=== PATIENT | male | born 1950 ===

== ENCOUNTER 2016-12-14 01:03 | Day surgery (SDC) | payer OTHER ==
[2016-12-14] VITALS (11 sets, daily range): BP systolic 122–154; BP diastolic 54–117; PULSE 43–50; RESP 12–20; O2SAT 97–98
[~2016-12-14] VITALS: Ht 170.2 cm; Wt 87.7 kg
[~2016-12-14 01:03] MED LIST: ASPI-973 PO; ATRV10T PO; BACL10TA PO; BUPR-97 PO; BUPR100T8 PO; CHOL10008 PO; LORA10CA PO; METH5TAB3 PO; METO-272 PO; NITR0.4T6 SL; QUET100T69 PO; TERA2CAP4 PO; VARE0.5T PO
[2016-12-14] MEDS ORDERED: 0.9% Sodium Chloride 1,000 ML IV ONE (09:34)
[2016-12-14 12:46] LABS: BASOPHILS % (AUTO) 0.4 % (0-3); EOSINOPHILS % (AUTO) 3.1 % (0-5); MONOCYTES % (AUTO) 3.5 % (4-12); Mean Corpuscular Hemoglobin 30.8 pg (27.0-35.0); Mean Corpuscular Volume 91.8 fL (81-100); Platelet Count 272 bil/L (150-400)
--- NOTE | 2016-12-14 14:18 | NUR ---
MICHEAL: Pt arrived to [facility] at 1215, VSS, no pain, IV X2 started with NS at 100 ml/hr per order. Awaiting procedure at this time. Addendum: 12/14/16 at 1458 by GEO MCMANUS RN Taken to slab miller operator in bed at 1455 per slab miller operator staff. Preop meds administered at around 1445. Family aware that pt taken to procedure for cath. Report given to Lynn Cagle RN in slab miller operator.
[2016-12-14] MEDS ORDERED: Heparin 1,000 Units/500 mL NS Premix IV ONE (14:32)
[2016-12-14] MEDS ORDERED: Nitroglycerin 50,000 mcg/250 mL D5W Premix IV ONE (14:32)
[2016-12-14] MEDS ORDERED: Heparin 1,000 Unit/mL 10 mL Inj ONE (14:32)
[2016-12-14] MEDS ORDERED: Heparin 5,000 Units/500 mL NS Premix IV ONE (14:33)
[2016-12-14] MEDS ORDERED: fentaNYL-PF 50 mCg/mL 2 mL Inj ONE (15:05)
--- NOTE | 2016-12-14 16:25 | DI95 ---
[address] [address] INTERVENTIONAL CARDIAC CATHETERIZATION PATIENT: JENNIFER PRINGLE : 1950 MR#: [id number] ADMIT: 12/14/2016 JOB ID: [id number] DOS:4.21.17 PROCEDURE: Selective right and left coronary angiography, left heart catheterization, percutaneous intervention on the left anterior descending. Abdominal and iliac angiography. INDICATION: 1. Known vascular disease. 2. Known coronary artery disease. 3. Recurrent chest pain. PROCEDURAL DETAILS: The reader is referred to the procedure log for complete details. Briefly, it was done via left femoral approach because of his history of prior complication with the iliac on the right side. Further details are in the procedure log to which the reader and the coders are referred. ANGIOGRAPHIC FINDINGS: 1. Left main: No significant disease. 2. LAD is a moderate caliber vessel in its mid to distal segment. It has evidence of prior stents. There is proximal finesse-stent restenosis and significant in-stent restenoses of about 80% to 90%. The distal vessel is a small caliber vessel. 3. Circumflex is nondominant, free of any critical disease. 4. Right coronary artery is dominant in its mid segment. It has about 30% to 40% lesion. 5. Left heart catheterization revealed an LVEDP of 18-19. There was no gradient upon pullback. Left ventriculogram revealed mild LV dysfunction. objective assessment of LVEF cannot be done because of ventricular tachycardia during the procedure. 6. Mild atheromatous disease of the distal abdominal aorta. INTERVENTIONAL REPORT: We then proceeded ahead with an intervention on the LAD. This was balloon dilated with a 2.0 balloon and then the proximal part of the stent and the proximal area of finesse-stent restenosis was treated with an overlapping stent, 2.5 x 12 mm Xience, delivered at 18 atmospheres. Using the same 2.5 balloon the previously placed stent was also postdilated. Final angiographic results were excellent. Iliac angiography was then performed and note is made of metal clips in the sacral region. There is a stent in the right common iliac artery. Additional angiography reveals that the stent is patent. There is mild disease in the left external iliac artery. Common femoral arteries bilaterally are patent. SFA and profunda are bilaterally patent as well. MTDD
[2016-12-14] MEDS: Sodium Chloride LOK Flush 10 mL Syringe IVFLUSH SCH (16:30)
--- NOTE | 2016-12-14 19:26 | NUR ---
MICHEAL to [facility] Pt arrived at approximately 182 to [facility]. Per report pt on bedrest until 1829. Pt dinner ordered in [facility] being sent up to [facility], verifed by Sup who transported pt. No pain on palp or hematoma to Left groin, pedal pulse strong. Pt Pulse 46. Care continues.
[2016-12-14] MEDS ORDERED: 0.9% Sodium Chloride 250 ML BOLUS IV PRN (19:40)
[2016-12-14] MEDS ORDERED: Sodium Chloride LOK Flush 10 mL Syringe IVFLUSH PRN (19:40)
[2016-12-14] MEDS ORDERED: Atropine 1 mg/10 mL (Code) Syringe IVPUSH PRN (19:40)
[2016-12-14] MEDS ORDERED: 0.9% Sodium Chloride 400 ML (4 HRS) IV ONE (19:40)
[2016-12-15 00:22] VITALS: BP 121/77; PULSE 46; RESP 17; O2SAT 97
[2016-12-15] MEDS: Sodium Chloride LOK Flush 10 mL Syringe IVFLUSH SCH (00:30)
[2016-12-15 04:19] VITALS: BP 119/72; PULSE 47; RESP 15; O2SAT 97
[2016-12-15 05:20] VITALS: PULSE 48
--- NOTE | 2016-12-15 07:56 | NUR ---
Activity/Groin Site Pt was able to get OOB and walk to the bathroom without c/o pain, dizziness, or SOB. Pt's groin site remained soft with no drainage and was pain free during activity and after activity once pt was back into bed. This AM during hand off report groin site was assessed again with the oncoming RN and the groin site remains soft and only tender to the touch when pressed down on with no drainage.
[2016-12-15 08:00] VITALS: PULSE 47
[2016-12-15 08:25] VITALS: BP 126/75; PULSE 52; RESP 16; O2SAT 97
[2016-12-15] MEDS ORDERED: buPROPion XL 300 mg ER24 Tablet PO SCH (08:30)
[2016-12-15] MEDS ORDERED: MeTOProlol XL 25 mg ER24 Tablet PO SCH (08:30)
--- NOTE | 2016-12-15 08:41 | NUR ---
Right groin/go home Pt right groin intact, no drainage, no hematoma. Pt stated he wanted to go home. Notified pt this RN will pass information onto MD. Care continues.
[2016-12-15] MEDS ORDERED: CLOP75TA28 PO (09:40)
--- NOTE | 2016-12-15 09:49 | PCM.DIMED ---
Discharge Instructions Date of Service Dec 15, 2016 Dates of Hospitalization 12/14/16 Discharge Diagnosis Discharge Diagnosis CAD s/p stent to LAD Medication Instructions You will be starting on Clopidogrel. This medicine will need to be taken every day along with aspirin. It will help to prevent clots in your arteries. Diet Low fat, Low Sodium, Heart Healthy Activity Other (No soaking in a tub for or lifting over 10 pounds for a week. ) Call your provider Fever or Chills, Shortness of breath, Chest pain, Vomitting, Weakness ( unilateral) Patient Instructions No lifting over 10 pounds or soaking in a tub for a week. Monitor for fever, chills or weakness. If you notice increased pain or swelling, redness, bleeding or a lump or bruising in your groin area call your doctor or go to the emergency room. Monitor your leg for numbness, tinging or weakness. Take all medications as prescribed. Provider: John Rice MD Follow-up in: 4 weeks Alberto Encinas PA-C Dec 15, 2016 09:49
[2016-12-15 12:18] VITALS: BP 116/69; PULSE 52; RESP 20; O2SAT 96
--- NOTE | 2016-12-15 12:44 | PCM.DC.CAR ---
Discharge Summary Date of Service Dec 15, 2016 Date of Hospital Admission 12/14/2016 Date of Discharge: Dec 15, 2016 Providers: Admitting Physician: Primary Care Physician: Louise León MD Attending Physician: John Rice MD Diagnosis at Time of Discharge CAD s/p stent to LAD Problems: Invasive Procedures: Selective right and left coronary angiography, left heart catheterization, percutaneous intervention on the left anterior descending. Abdominal and iliac angiography. Brief History and Physical: Mr. Pinedo is a 66-year-old male with history of known epicardial coronary artery disease with recurring chest pain and known peripheral vascular disease. Review of systems was benign for chest pain, palpitation, orthopnea, groin or leg pain. He admits to continued shortness of breath but claims this is no different than preprocedure and appears to be his baseline. ROS is otherwise benign. On exam today he is lying comfortably in bed in no apparent distress. His groin is benign without bruit, hematoma, bruising or significant tenderness. There is no discharge. His left leg is neurologically intact with normal sensation and motor function. Distal pulses are 2+ in his left foot. His heart is regular in rate and rhythm without gallop. Lungs are clear to auscultation bilaterally and symmetrical. Exam is otherwise benign. Hospital Course: She was brought in for diagnostic heart catheterization secondary to recurring chest pain and known coronary artery disease. Dr. Rice used a left groin approach secondary to prior complications the iliac artery on the right side. The patient was found to have proximal finesse-stent restenosis and significant in- stent restenosis of about 80-90%. The circumflex was nondominant and free of critical disease. The RCA is dominant and has about 30-40% lesion. Dr. Rice intervene on the LAD. The proximal part of the stent in the proximal area of the finesse-stent restenosis was treated with an overlapping stent. Iliac angiography was also performed and is made of metal clips in the sacral region. There is a stent in the right common iliac artery. The stent appeared patent. There is mild disease of the left external iliac artery. Common femoral arteries bilaterally are patent. SFA and profunda are bilaterally patent as well. Review of his overnight telemetry was benign. Patient claims he rested comfortably overnight and denies any chest pain. He does admit to continued dyspnea which is no worse from his procedure. He admits to history of COPD and is currently not using inhalers. He claims he is otherwise feeling well. He specifically denies pain swelling or bruising to his left groin area. He has no numbness tingling or weakness in his left lower extremity. Patient was given the usual instructions for discharge and will have him follow-up with Dr. Rice in 4 weeks in the office. He is specifically advised the importance of Plavix and aspirin daily. We will continue other meds as prescribed. Discharge Medications Aspirin (Aspirin) 81 Mg Tablet 81 MG PO DAILY Atorvastatin (Lipitor) 10 Mg Tab 10 MG PO DAILY Baclofen (Baclofen) 10 Mg Tablet 10 MG PO TID Bupropion ER (Wellbutrin XL) 150 Mg Tab.er.24h 300 MG PO DAILY Cholecalciferol (Vitamin D3) (Vitamin D3) 1,000 Unit Tab.chew 1,000 UNIT PO DAILY Clopidogrel (Clopidogrel) 75 Mg Tablet 75 MG PO DAILY Loratadine (Claritin) 10 Mg Capsule 10 MG PO DAILY Methadone (Methadone) 5 Mg Tablet 5 MG PO TID Metoprolol Succinate ER (Metoprolol Succinate ER) 50 Mg Tab.er.24h 50 MG PO DAILY Nitroglycerin SL (Nitroglycerin SL) 0.4 Mg Tab.subl 0.4 MG SL Q5MIN Quetiapine Fumarate (Quetiapine Fumarate) 100 Mg Tablet 100 MG PO DAILY Terazosin (Terazosin) 2 Mg Capsule 2 MG PO HS Additional med instructions You will be starting on Clopidogrel. This medicine will need to be taken every day along with aspirin. It will help to prevent clots in your arteries. Followup Plan Disposition: Pt has some mild continued dyspnea which is unchanged from his premorbid state. He denies chest pain. No obvious signs of complications from his interventional procedure. Follow-up plan The patient will follow-up with Dr. Rice in 4 weeks as an outpatient. Discharge Activity: Other (No soaking in a tub for or lifting over 10 pounds for a week. ) Patient Instructions No lifting over 10 pounds or soaking in a tub for a week. Monitor for fever, chills or weakness. If you notice increased pain or swelling, redness, bleeding or a lump or bruising in your groin area call your doctor or go to the emergency room. Monitor your leg for numbness, tinging or weakness. Take all medications as prescribed. Alberto Encinas PA-C Dec 15, 2016 12:44
--- NOTE | 2016-12-15 14:51 | NUR ---
Rt groin/Discharge Rt groin intact, no bleeding, no hematoma, no pain on palpation. Pt discharged at approximately 1345 to home with sister driving. Pt given educational material regarding CAD, Post Stent placement, Plavix and Cardiac Stent booklet. Next dose to be taken clearly written and dated for all medications, follow up phone number and contact info highlighted. Pt acknowledged and understood all information. Both IV's DC'd with catheter intact, tele removed vocational technical education director notified. Pt left with all personal belongings. Pt escorted to the door by GIOVANI.
== END 2016-12-15 13:30 | disposition home or self-care (01) ==
LOC: SOUO 01:03 → PCC 18:14 → SOUO 12-15 13:30
PROVIDERS: ATTEND Internal Medicine Cardiovascular Disease
DX: I25.10 Atherosclerotic heart disease of native coronary artery without angina pectoris (principal); T82.855A Stenosis of coronary artery stent, initial encounter; I73.9 Peripheral vascular disease, unspecified; I70.0 Atherosclerosis of aorta; R06.02 Shortness of breath; Z79.02 Long term (current) use of antithrombotics/antiplatelets; Z95.820 Peripheral vascular angioplasty status with implants and grafts; Z87.891 Personal history of nicotine dependence; Z79.82 Long term (current) use of aspirin; Z79.891 Long term (current) use of opiate analgesic; Y84.8 Other medical procedures as the cause of abnormal reaction of the patient, or of later complication, without mention of misadventure at the time of the procedure
CPT/HCPCS: 36415; 75716; 80048; 85025; 93005; 93458; 99152; 99153; C1725; C1760; C1769; C1874; C1887; C9600; J1200; J1644; J2060; J2250; J3010; J7030; Q9967